=== PATIENT | female | born 1960 | race Native Hawaiian/Other Pacific Islander ===

== ENCOUNTER 2021-05-12 14:51 | Outpatient (CLI) | payer OTHER ==
[~2021-05-12] VITALS: Ht 154.9 cm; Wt 82.1 kg
== END 2021-05-12 22:07 | disposition home or self-care (01) ==
LOC: INF 14:51
PROVIDERS: ATTEND Family Medicine
DX: Z23 Encounter for immunization (principal); U07.1 COVID-19
CPT/HCPCS: 96365; M0244

== ENCOUNTER 2021-05-14 18:04 | Emergency (ER) | payer OTHER ==
[~2021-05-14] VITALS: Ht 154.9 cm; Wt 82.1 kg
[2021-05-14 18:59] LABS: PLATELET COUNT 281 K/uL (152-353)
[2021-05-14 19:09] LABS: POTASSIUM 3.5 mmol/L (3.6-5.2)
[2021-05-14 21:00] VITALS: BP 113/63; TEMP 98.2
== END 2021-05-14 21:00 | disposition home or self-care (01) ==
LOC: ED 18:04
PROVIDERS: Hospitalist
DX: U07.1 COVID-19 (principal); R11.2 Nausea with vomiting, unspecified; E86.0 Dehydration; I10 Essential (primary) hypertension
CPT/HCPCS: 80053; 85027; 96361; 96374; 99284; J2405